=== PATIENT | female | born 1990 | race Caucasian/White ===

== ENCOUNTER 2017-10-03 04:54 | Emergency (ER) | payer BC ==
[2017-10-03] MEDS: SOD CHLORIDE 0.9% 1,000 ML IV ×3 (05:15→06:00)
[2017-10-03 05:21] LABS: ADD MAN DIFF? NO
[2017-10-03 05:25] LABS: ABNORMAL IP MESSAGE 1; BASOPHIL # 0.1 10^3/ul (0.0-0.1); BASOPHILS % 0.4 % (0.0-2.0); EOSINOPHILS # 0.2 10^3/ul (0.0-0.5); EOSINOPHILS % 1.5 % (0.0-7.0); HEMOGLOBIN 12.2 g/dl (12.0-16.0); LYMPHOCYTES # 7.9 10^3/ul (0.8-2.9); LYMPHOCYTES % 51.1 % (15.0-51.0); MEAN CORPUSCULAR HEMOGLOBIN 27.5 pg (29.0-33.0); MEAN CORPUSCULAR VOLUME 83.5 fl (82.0-101.0); MEAN PLATELET VOLUME 11.5 fl (7.4-10.4); MONOCYTES % 6.2 % (0.0-11.0); NEUTROPHIL # 6.2 10^3/ul (1.6-7.5); NEUTROPHILS % 40.5 % (39.0-77.0); PLATELET COUNT 376 10^3/UL (140-415); RED BLOOD COUNT 4.43 10^6/ul (4.20-5.40); RED CELL DISTRIBUTION WIDTH 12.7 % (11.5-14.5)
[2017-10-03 05:25] LABS: WHITE BLOOD COUNT 15.4 10^3/ul (4.8-10.8)
[2017-10-03 05:36] LABS: POSITIVE DIFF @See below
[2017-10-03 05:54] LABS: ANION GAP 14 (8-16); BLOOD UREA NITROGEN 16 mg/dl (7-20); CARBON DIOXIDE 24 mmol/L (21-31); CHLORIDE 106 mmol/L (97-110); CREATININE 0.57 mg/dl (0.44-1.00); GLUCOSE 107 mg/dl (70-220); POTASSIUM 3.3 mmol/L (3.5-5.1); SODIUM 141 mmol/L (135-144)
[2017-10-03 05:57] LABS: ETHANOL < 10.0 mg/dl
[2017-10-03] MEDS: POTASSIUM CHLORIDE (SR) 20 MEQ TAB PO (06:12)
[2017-10-03] MEDS: ONDANSETRON 4 MG INJ IV (07:23)
== END 2017-10-03 08:17 | disposition home or self-care (01) ==
LOC: E/R 04:54
DX: R55 Syncope and collapse (principal); E87.6 Hypokalemia; E86.0 Dehydration; F17.210 Nicotine dependence, cigarettes, uncomplicated
CPT/HCPCS: 36415; 80048; 80306; 81025; 82962; 85025; 93005; 96374; 99284-25

== ENCOUNTER 2017-12-30 03:56 | Emergency (ER) | payer BC ==
[2017-12-30] MEDS: DIPHENHYDRAMINE 50 MG INJ IM (04:57)
[2017-12-30] MEDS: DEXAMETHASONE 4 MG/ML 1 ML INJ IM (04:57)
== END 2017-12-30 09:31 | disposition home or self-care (01) ==
LOC: E/R 03:56
DX: L50.9 Urticaria, unspecified (principal); F17.210 Nicotine dependence, cigarettes, uncomplicated
CPT/HCPCS: 81025; 96372; 99284-25

== ENCOUNTER 2018-01-08 19:03 | Emergency (ER) | payer BC ==
[2018-01-08] MEDS: DIPHENHYDRAMINE 50 MG INJ IV (19:50)
[2018-01-08] MEDS: SOD CHLORIDE 0.9% 1,000 ML IV (19:50)
[2018-01-08] MEDS: METOCLOPRAMIDE 10 MG INJ IV (19:50)
[2018-01-08] MEDS: ACETAMINOPHEN 325 MG TAB PO (19:50)
[2018-01-08 20:09] LABS: ADD MAN DIFF? NO
[2018-01-08 20:11] LABS: WHITE BLOOD COUNT 10.4 10^3/ul (4.8-10.8)
[2018-01-08 20:11] LABS: BASOPHILS % 0.4 % (0.0-2.0); EOSINOPHILS # 0.1 10^3/ul (0.0-0.5); EOSINOPHILS % 0.8 % (0.0-7.0); HEMATOCRIT 39.5 % (37.0-47.0); HEMOGLOBIN 13.1 g/dl (12.0-16.0); LYMPHOCYTES # 3.5 10^3/ul (0.8-2.9); LYMPHOCYTES % 33.4 % (15.0-51.0); MEAN CORPUSCULAR HEMOGLOBIN 27.8 pg (29.0-33.0); MEAN CORPUSCULAR HGB CONC 33.2 g/dl (32.0-37.0); MEAN CORPUSCULAR VOLUME 83.9 fl (82.0-101.0); MONOCYTE # 0.7 10^3/ul (0.3-0.9); MONOCYTES % 6.7 % (0.0-11.0); NEUTROPHIL # 6.1 10^3/ul (1.6-7.5); NEUTROPHILS % 58.3 % (39.0-77.0); PLATELET COUNT 338 10^3/UL (140-415); RED BLOOD COUNT 4.71 10^6/ul (4.20-5.40); RED CELL DISTRIBUTION WIDTH 12.7 % (11.5-14.5)
[2018-01-08 20:31] LABS: INR 0.86; PROTIME 11.8 Sec (11.9-14.9); PT RATIO 0.9
[2018-01-08 20:33] LABS: ANION GAP 12 (8-16); BLOOD UREA NITROGEN 11 mg/dl (7-20); CALCIUM 9.9 mg/dl (8.4-10.2); CARBON DIOXIDE 24 mmol/L (21-31); CHLORIDE 103 mmol/L (97-110); CREATININE 0.61 mg/dl (0.44-1.00); GLUCOSE 90 mg/dl (70-220); POTASSIUM 4.3 mmol/L (3.5-5.1); SODIUM 135 mmol/L (135-144)
[2018-01-08] MEDS: LORAZEPAM 2 MG INJ IV (21:43)
[2018-01-09] MEDS: LORAZEPAM 2 MG INJ IV (02:07)
== END 2018-01-09 08:20 | disposition home or self-care (01) ==
LOC: E/R 01-09 08:20
DX: R51 Headache (principal); R55 Syncope and collapse
CPT/HCPCS: 36415; 70450; 70544; 70551; 80048; 81025; 85025; 85610; 85730; 93005; 96374; 96375; 96376; 99285-25

== ENCOUNTER 2018-06-23 05:11 | Emergency (ER) | payer OTHER, BC ==
[2018-06-23] MEDS: LORAZEPAM 2 MG INJ IM ×2 (05:45→06:07)
[2018-06-23] MEDS: LORAZEPAM 1 MG TAB PO (05:57)
== END 2018-06-23 06:20 | disposition home or self-care (01) ==
LOC: E/R 05:11
DX: F41.9 Anxiety disorder, unspecified (principal)
CPT/HCPCS: 99283; J2060

== ENCOUNTER 2018-10-09 02:32 | Emergency (ER) | payer OTHER ==
[2018-10-09 03:05] LABS: ADD UMIC YES; UR ASCORBIC ACID NEGATIVE (NEGATIVE); UR BACTERIA FEW /HPF (NONE SEEN); UR BILIRUBIN (Dip) NEGATIVE (NEGATIVE); UR BLOOD (Dip) 2+ mg/dL (NEGATIVE); UR CLARITY SLIGHTLY CLOUDY (CLEAR); UR COLOR YELLOW (YELLOW); UR GLUCOSE (Dip) NEGATIVE (NEGATIVE); UR KETONES (Dip) NEGATIVE (NEGATIVE); UR LEUKOCYTE ESTERASE (Dip) NEGATIVE Leu/ul (NEGATIVE); UR MUCUS FEW /HPF (NONE SEEN); UR NITRITE (Dip) NEGATIVE (NEGATIVE); UR RBC 2 /HPF (0-5); UR SPECIFIC GRAVITY (Dip) 1.024 (1.003-1.030); UR SQUAMOUS EPITHELIAL CELL FEW /HPF (FEW); UR TOTAL PROTEIN (Dip) NEGATIVE (NEGATIVE); UR UROBILINOGEN (Dip) NEGATIVE (NEGATIVE); UR WBC 2 /HPF (0-5)
== END 2018-10-09 04:20 | disposition home or self-care (01) ==
LOC: E/R 02:32 → FTE 04:20
DX: R30.0 Dysuria (principal)
CPT/HCPCS: 81001; 87086; 99283

== ENCOUNTER 2019-02-27 14:59 | Emergency (ER) | payer BC, OTHER ==
[2019-02-27 16:41] LABS: ADD MAN DIFF? NO
[2019-02-27 16:45] LABS: WHITE BLOOD COUNT 9.5 10^3/ul (4.8-10.8)
[2019-02-27 16:45] LABS: BASOPHILS % 0.2 % (0.0-2.0); EOSINOPHILS # 0.2 10^3/ul (0.0-0.5); HEMATOCRIT 40.7 % (37.0-47.0); HEMOGLOBIN 13.2 g/dl (12.0-16.0); LYMPHOCYTES % 31.5 % (15.0-51.0); MEAN CORPUSCULAR HEMOGLOBIN 27.3 pg (29.0-33.0); MEAN CORPUSCULAR HGB CONC 32.4 g/dl (32.0-37.0); MEAN CORPUSCULAR VOLUME 84.1 fl (82.0-101.0); MEAN PLATELET VOLUME 11.4 fl (7.4-10.4); MONOCYTE # 0.5 10^3/ul (0.3-0.9); MONOCYTES % 5.3 % (0.0-11.0); NEUTROPHIL # 5.8 10^3/ul (1.6-7.5); NEUTROPHILS % 60.8 % (39.0-77.0); PLATELET COUNT 309 10^3/UL (140-415); RED BLOOD COUNT 4.84 10^6/ul (4.20-5.40); RED CELL DISTRIBUTION WIDTH 12.6 % (11.5-14.5)
[2019-02-27 17:06] LABS: ALANINE AMINOTRANSFERASE 17 IU/L (13-69); ALBUMIN 5.1 g/dl (3.3-4.9); ALBUMIN/GLOBULIN RATIO 1.45; ALKALINE PHOSPHATASE 72 IU/L (42-121); ANION GAP 9 (5-13); ASPARTATE AMINO TRANSFERASE 23 IU/L (15-46); BILIRUBIN,INDIRECT 0.8 mg/dl (0-1.1); BILIRUBIN,TOTAL 0.8 mg/dl (0.2-1.3); BLOOD UREA NITROGEN 12 mg/dl (7-20); CARBON DIOXIDE 27 mmol/L (21-31); CHLORIDE 103 mmol/L (97-110); CREATININE 0.67 mg/dl (0.44-1.00); Estimated GFR > 60 mL/min (>60); GLUCOSE 95 mg/dl (70-220); SODIUM 139 mmol/L (135-144); TOTAL PROTEIN 8.6 g/dl (6.1-8.1)
== END 2019-02-27 17:22 | disposition home or self-care (01) ==
LOC: FTE 17:22 → E/R 14:59
DX: R68.84 Jaw pain (principal); F17.210 Nicotine dependence, cigarettes, uncomplicated
CPT/HCPCS: 70140; 80053; 85025; 99284-25